=== PATIENT | female | born 1990 | race Caucasian/White ===

== ENCOUNTER 2021-05-12 00:33 | Emergency (ER) | payer BC, SELFPAY ==
[2021-05-12 01:05] VITALS: BP 99/63; PULSE 86; RESP 16; TEMP 37.1; O2SAT 98; BMI 25.7
--- NOTE | 2021-05-12 01:12 | XRR_ITS ---
PROCEDURE INFORMATION: Exam: XR Chest Exam date and time: 05/12/2021 1:12 AM Age: 30 years old Clinical indication: Dyspnea; Additional info: SOB TECHNIQUE: Imaging protocol: XR of the chest. Views: 1 view. COMPARISON: No relevant prior studies available. FINDINGS: Lungs: Unremarkable. No consolidation. Pleural spaces: Unremarkable. No pleural effusion. No pneumothorax. Heart/Mediastinum: Unremarkable. No cardiomegaly. Bones/joints: Unremarkable. XR/XR chest 1V portable [id number] IMPRESSION: No acute disease.
--- NOTE | 2021-05-12 01:36 | W.ED.COVID ---
HPI - COVID General: Chief Complaint: COVID symptoms Stated Complaint: SOB, disorientation Time Seen by Provider: 05/12/21 01:15 Triage information: Has fever, cough or shortness of breath. Exposure to COVID + person last 14 days History of Present Illness: HPI Narrative: Patient is a 30-year-old female comes to the ED with shortness of breath and chest tightness. Patient says approximately a week ago she was having upper respiratory symptoms with a productive cough. She says her symptoms improved but her cough has gotten dry and feels deeper. She endorses having some nausea but no episodes of emesis. Denies any recent fevers. She says her shortness of breath and chest tightness gets worse when she lays flat. Denies any known contact with Covid positive patient. No lower extremity swelling. Denies any history of blood clots, DVT or PE. COVID 19 common symptoms: positive non-productive cough, dyspnea, nasal congestion and nausea; negative fever(s), chills, productive cough, fatigue, headache(s), throat pain, vomiting or diarrhea COVID 19 other sytmptoms: positive chest pain (chest tightness) COVID Results: No Data to Display Review of Systems Const: Denies: fever(s), chills or fatigue Eyes: Denies: change in vision or eye discomfort ENMT: Reports: nasal discharge and nasal congestion; Denies: throat pain or odynophagia Card: Reports: chest pain (chest tightness); Denies: palpitations, edema, swelling of feet/ankles, dyspnea on exertion or orthopnea Resp: Reports: dyspnea and non-productive cough; Denies: productive cough GI: Reports: nausea; Denies: abdominal pain, vomiting, diarrhea, constipation or hematochezia : Denies: flank pain, dysuria or hematuria Musc: Denies: neck pain, back pain or extremity swelling Skin/Breast: Denies: rash or new lesions Neuro: Denies: headache(s), numbness in extremities or weakness in extremities [facility] ED Female Reproductive History: Date of last menstrual period: 04/22/21 Physical Exam Const: COMMON NORMALS: no acute distress, patient oriented x3, healthy appearing and alert GENERAL APPEARANCE: cooperative and comfortable HENMT: COMMON NORMALS: normocephalic HEAD & SCALP: normocephalic MOUTH: Normal oral and palatal mucosa present THROAT: posterior oropharynx normal and uvula midline Neck/C-Spine: COMMON NORMALS: supple GENERAL: Yes normal visual inspection Resp: COMMON NORMALS: normal respiratory effort, No retractions and No use of accessory muscles EFFORT & INSPECTION: Yes able to speak in complete sentences, No tachypneic, No respiratory distress and No labored AUSCULTATION: rhonchi right lower and other (All other lung ruiz are clear bilaterally, except right lower lobe) Cardio: COMMON NORMALS: regular rate, regular rhythm, S1 normal heart sound present, S2 normal heart sound present, No gallops present (Cardio), No clicks present (Cardio), No murmurs present (Cardio) and Peripheral pulses 2+ throughout RATE: regular rate RHYTHM: regular rhythm HEART SOUNDS: S1 normal heart sound present and S2 normal heart sound present PERIPHERAL PULSES: Peripheral pulses 2+ throughout GI: COMMON NORMALS: Normal to inspection, nondistended, normoactive bowel sounds present, Soft to palpation, non-tender and no masses PALPATION: Yes Soft to palpation : COMMON NORMALS: Yes no CVA tenderness BLADDER/KIDNEY EXAM: Yes no CVA tenderness Back/Pelvis: COMMON NORMALS: no CVA tenderness Extremity: COMMON NORMALS: normal to inspection Neuro: COMMON NORMALS: patient oriented x3 and moves all extremities SENSORIUM/ORIENTATION: Yes alert Skin: GENERAL SKIN EXAM: dry skin Course Vital Signs: Vital signs: Vital Signs Temperature 98.8 F 05/12/21 01:05 Pulse Rate 87 05/12/21 02:51 Respiratory Rate 18 05/12/21 02:51 Blood Pressure 109/63 05/12/21 02:51 Pulse Oximetry 97 05/12/21 02:51 MDM - COVID MDM Narrative: Medical decision making narrative: Patient is a 30-year-old female comes to the ED with cough and chest tightness/shortness of breath. Patient had upper respiratory symptoms for the past week with a productive cough, but states that her cough has become dry nonproductive and deep. Patient appears nontoxic and is in no acute distress or pain. Vitals are stable. Patient has some coarse breath sounds in the right lower lobe of lung. No other acute exam findings. CBC, CMP were unremarkable. hCG negative. Troponin negative and EKG showed normal sinus rhythm and no ST segment elevation or depression seen. Chest x-ray shows possible pneumonia developing in right lower lobe of the lung. Patient was given a dose of Zofran and azithromycin while here in the ED. Patient diagnosed with pneumonia and given a prescription for azithromycin, Tessalon Perles and Zofran. Return to ED precautions given. Follow-up with PCP in 7 days for reevaluation. Patient understood agree with plan. Lab Data: Attestation: I reviewed the patient's lab results. Labs: Lab Results 05/12/21 05/12/21 05/12/21 Range/Units 01:45 01:45 01:45 WBC 4.5 (4.0-10.0) 10^3/ uL RBC 4.74 (4.1-5.3) 10^6/u L Hgb 14.1 (11.5-15.3) g/dL Hct 42.5 (37.0-47.0) % MCV 89.7 (81-99) fL MCH 29.7 (28.0-34.0) pg MCHC 33.2 (30.0-36.0) g/dL RDW 11.5 L (12.1-15.1) % Plt Count 213 (130-400) 10^3/c mm MPV 11.4 H (7.4-10.4) fL Neut % (Auto) 62.0 % Lymph % (Auto) 24.7 % [place]oup % (Auto) 12.9 % Eos % (Auto) 0.0 % Baso % (Auto) 0.2 % Neut # (Auto) 2.79 (1.8-7.7) 10^3/u L Lymph # (Auto) 1.1 (0.8-4.8) 10^3/u L Loup # (Auto) 0.6 (0.2-0.9) 10^3/u L Eos # (Auto) 0.0 (0.0-0.8) 10^3/u L Baso # (Auto) 0.0 (0.0-0.1) 10^3/u L Nucleated RBC % (a uto) 0 % Nucleated RBCs # 0.0 /100WBC Sodium 140 (136-145) mmol/L Potassium 3.9 (3.5-5.1) mmol/L Chloride 104 (98-107) mmol/L Carbon Dioxide 25 (22-29) mmol/L Anion Gap 14.9 (5-19) BUN 9 (6-20) mg/dL Creatinine 0.7 (0.5-0.9) mg/dL GFR Calculation 98.9 (90-130) mL/min Glucose 95 (65-115) mg/dL Calculated Osmolal ity 288 (285-295) mOsm/k g Calcium 8.7 (8.5-10.5) mg/dL Total Bilirubin 0.3 (0.15-1.2) mg/dL AST 55 H (0-32) U/L ALT 59 H (0-33) U/L Alkaline Phosphata se 62 (35-105) IU/L Troponin T Baselin e 6 (0-10) ng/L Total Protein 6.5 L (6.6-8.7) g/dL Albumin 4.3 (3.5-5.2) g/dL Globulin 2.2 (1.3-4.6) g/dL HCG, Qual (Negative) 05/12/21 Range/Units 01:45 WBC (4.0-10.0) 10^3/ uL RBC (4.1-5.3) 10^6/u L Hgb (11.5-15.3) g/dL Hct (37.0-47.0) % MCV (81-99) fL MCH (28.0-34.0) pg MCHC (30.0-36.0) g/dL RDW (12.1-15.1) % Plt Count (130-400) 10^3/c mm MPV (7.4-10.4) fL Neut % (Auto) % Lymph % (Auto) % [place] % (Auto) % Eos % (Auto) % Baso % (Auto) % Neut # (Auto) (1.8-7.7) 10^3/u L Lymph # (Auto) (0.8-4.8) 10^3/u L [place]oup # (Auto) (0.2-0.9) 10^3/u L Eos # (Auto) (0.0-0.8) 10^3/u L Baso # (Auto) (0.0-0.1) 10^3/u L Nucleated RBC % (a uto) % Nucleated RBCs # /100WBC Sodium (136-145) mmol/L Potassium (3.5-5.1) mmol/L Chloride (98-107) mmol/L Carbon Dioxide (22-29) mmol/L Anion Gap (5-19) BUN (6-20) mg/dL Creatinine (0.5-0.9) mg/dL GFR Calculation (90-130) mL/min Glucose (65-115) mg/dL Calculated Osmolal ity (285-295) mOsm/k g Calcium (8.5-10.5) mg/dL Total Bilirubin (0.15-1.2) mg/dL AST (0-32) U/L ALT (0-33) U/L Alkaline Phosphata se (35-105) IU/L Troponin T Baselin e (0-10) ng/L Total Protein (6.6-8.7) g/dL Albumin (3.5-5.2) g/dL Globulin (1.3-4.6) g/dL HCG, Qual Negative (Negative) Imaging Data: CXR: Attestation: I personally reviewed and interpreted this imaging study as follows: My impression: Chest x-ray?some right lower lobe lung pneumonia developing. Radiologist's impression: [address] [id number] ReportSigned Patient: Ari Lamb #: [id number]: 1990Acct#:[id number]/Sex: 30 FADM Date: 05/12/21Loc: ERRoom/Bed:Attending Dr: Ordering Provider/Ordering MD: Travon Birch MD Date of Service: 05/12/21 Procedure(s): XR chest 1V portable [id number] Accession Number(s): [id number] Report Number: [id number] PROCEDURE INFORMATION: Exam: XR Chest Exam date and time: 05/12/2021 1:12 AM Age: 30 years old Clinical indication: Dyspnea; Additional info: SOB TECHNIQUE: Imaging protocol: XR of the chest. Views: 1 view. COMPARISON: No relevant prior studies available. FINDINGS: Lungs: Unremarkable. No consolidation. Pleural spaces: Unremarkable. No pleural effusion. No pneumothorax. Heart/Mediastinum: Unremarkable. No cardiomegaly. Bones/joints: Unremarkable. XR/XR chest 1V portable [id number] IMPRESSION: No acute disease. Dictated By:Moises Lees By:Moises Lees Date/Time:05/12/211DD/ 8 EKG Data: EKG 1: Attestation: I personally reviewed and interpreted this EKG as follows: EKG interpretation date: 05/12/21 Interpretation: Normal sinus rhythm, 83 bpm, no ST segment elevation or depression seen. Nonacute EKG. COVID Results: No Data to Display Discharge Plan Discharge Patient Disposition: Home Clinical Impression: Pneumonia Qualifiers: Pneumonia type: due to unspecified organism Laterality: right Lung location: lower lobe of lung Qualified Code(s): J18.9 - Pneumonia, unspecified organism Condition: Stable Prescriptions: New azithromycin 250 mg tablet 250 mg PO DAILY 4 Days Qty: 4 RF: 0 ondansetron 4 mg tablet,disintegrating 4 mg PO Q8H PRN (Reason: nausea and vomiting) Qty: 10 RF: 0 benzonatate 100 mg capsule 100 mg PO Q6H PRN (Reason: cough) Qty: 15 RF: 0 Discharge Orders: Discharge ED (Routine); Ordered 05/12/21 Ordered By: Michael Suresh Discharge Diet: Regular Discharge Activity: Increase activity as tolerated Patient Instructions: Pneumonia (ED) Activity Restrictions/Additional Instructions: Follow-up with medical provider as directed in 7 days for reevaluation. Take medications as prescribed. Return to the ER or your medical provider if condition worsens. Please read and understand discharge instructions. Thank you for choosing [facility] for your healthcare needs today. Please realize this is an emergency room and that we are providing you with a medical screening exam and this may not be complete and all inclusive of all the testing and or work up that you may need to determine your ailment or severity of your illness. It is very important that you follow up as instructed or that you return to the Emergency Department should you have concerns or if your condition changes or worsens in any way. Coding Level of Care Code ED Radiocommunications Technician for Chg Fwd Exam Comprehensive
--- NOTE | 2021-05-12 01:37 | ECG_ITS ---
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 Measurements Intervals [place] Rate: 83 P: 66 RI: 138 QRS: 32 QRSD: 92 T: 59 QT: 356 QTc: 419 Interpretive Statements SINUS RHYTHM No previous ECG available for comparison Electronically Signed On 05-13-2021 7:04:35 CDT by Mague Lennon M.D. [id number]
[2021-05-12 01:39] VITALS: O2SAT 98
[2021-05-12 01:47] VITALS: BP 123/78; PULSE 92; RESP 18; O2SAT 97
[2021-05-12 01:47] LABS: Basophils % 0.2 %; Mean Corpuscular HGB Conc 33.2 g/dL (30.0-36.0); Neutrophils # 2.79 10^3/uL (1.8-7.7); Nucleated Red Blood Cells % 0 %; Red Cell Distribution Width 11.5 % (12.1-15.1)
[2021-05-12] MEDS: ondansetron 4 MG Tablet PO (01:52)
[2021-05-12 02:03] LABS: HCG, Serum Qual Negative (Negative)
[2021-05-12 02:10] LABS: Hematocrit 42.5 % (37.0-47.0); Hemoglobin 14.1 g/dL (11.5-15.3); Lymphocytes # 1.1 10^3/uL (0.8-4.8); Lymphocytes % 24.7 %; Mean Corpuscular Hemoglobin 29.7 pg (28.0-34.0); Mean Corpuscular Volume 89.7 fL (81-99); Mean Platelet Volume 11.4 fL (7.4-10.4); Monocytes # 0.6 10^3/uL (0.2-0.9); Monocytes % 12.9 %; Platelet Count 213 10^3/cmm (130-400); Red Blood Count 4.74 10^6/uL (4.1-5.3); Troponin(5th) Baseline 6 ng/L (0-10); White Blood Count 4.5 10^3/uL (4.0-10.0)
[2021-05-12 02:11] LABS: Alanine Aminotransferase 59 U/L (0-33); Albumin Level 4.3 g/dL (3.5-5.2); Alkaline Phosphatase 62 IU/L (35-105); Anion Gap 14.9 (5-19); Aspartate Amino Transferase 55 U/L (0-32); Blood Urea Nitrogen 9 mg/dL (6-20); Calcium 8.7 mg/dL (8.5-10.5); Carbon Dioxide 25 mmol/L (22-29); Chloride 104 mmol/L (98-107); Globulin 2.2 g/dL (1.3-4.6); Glomerular Filtration Rate 98.9 mL/min (90-130); Glucose 95 mg/dL (65-115); Osmolality Calculated 288 mOsm/kg (285-295); Potassium 3.9 mmol/L (3.5-5.1); Sodium 140 mmol/L (136-145); Total Bilirubin 0.3 mg/dL (0.15-1.2); Total Protein 6.5 g/dL (6.6-8.7)
[2021-05-12] MEDS: azithromycin 250 mg Tablet 500 MG PO (02:46)
[2021-05-12 02:51] VITALS: BP 109/63; PULSE 87; RESP 18; O2SAT 97
== END 2021-05-12 02:52 | disposition home or self-care (01) ==
PROVIDERS: Emergency Provider Physician Assistant
DX: J18.9 Pneumonia, unspecified organism (principal)
CPT/HCPCS: 71045; 80053; 84484; 84703; 85025; 93005; 99283; Q0144; Q0162

== ENCOUNTER → 2021-12-11 09:59 | Outpatient (BNVA) | payer BC, SELFPAY | PROVIDERS: Visit Provider Emergency Medicine | DX: Z34.90 Encounter for supervision of normal pregnancy, unspecified, unspecified trimester (principal) | CPT/HCPCS: 81000 ==

== ENCOUNTER → 2025-07-25 14:09 | Outpatient (BNVA) | payer OTHER, SELFPAY | PROVIDERS: Visit Provider Nurse Practitioner | DX: J02.9 Acute pharyngitis, unspecified (principal) | CPT/HCPCS: 87071; 87880 ==